=== PATIENT | female | born 1970 | race Caucasian/White ===

== ENCOUNTER 2020-04-19 07:33 | Outpatient (CLI) | payer BC, SELFPAY ==
--- NOTE | ~2020-04-19 | MR_ITS ---
EXAMINATION: MR knee RT wo con DATE: 04/19/2020 08:33 INDICATION: Internal derangement of the right knee TECHNIQUE: Magnetic resonance imaging (MRI) of the right knee was performed without intravenous contr ast. Sequences included coronal PD-weighted FSE, coronal PD-weighted FS FSE, sagittal T2-weighted FS E, sagittal PD-weighted FS FSE and axial PD weighted fat saturated FSE. COMPARISON: None. FINDINGS: Medial compartment: Mild increased intrasubstance signal in the posterior horn of the medial meniscus which does not cont act the articular surface consistent with mucoid degeneration without discrete tear. Partial-thicknes s chondral ulceration without degenerative subchondral changes along the anterior weightbearing media l femoral condyle. Additional cartilage loss with mild subarticular edema along the anteromedial rim of the medial tibial plateau. Lateral compartment: Lateral meniscus is normal. Partial-thickness chondral fissuring at the central to posterior medial a spect of the lateral tibial plateau extending onto the shoulder the intercondylar eminence. Patellofemoral compartment: Partial-thickness cartilage loss along the lateral margin of the lateral trochlea with small region o f full-thickness fissuring with mild underlying cortical irregularity and mild subarticular edema at the cephalad aspect of the lateral trochlea. Additional deep chondral ulceration with mild cortical i rregularity and subarticular edema at the caudal aspect of the trochlear groove and medial trochlea a s well as involving a significant portion of the lateral patellar facet and portions of the apical ri dge. Chondral cartilage thickness is relatively preserved at the medial facet but with shallow fissur ing and chondral surface irregularity. Ligaments and tendons: Anterior and posterior cruciate ligaments are normal. The medial collateral ligament and fibular thine ateral ligament complex are normal. Minimal distal quadriceps tendinopathy with small enthesophytes a t its patellar insertion. There are bands of magic angle artifact extending across portions of the no rmal patellar tendon. The visualized medial and lateral hamstring tendons as well as the iliotibial b and are normal. Fluid: Large right knee joint effusion with mild synovitis along the margins of the suprapatellar pouch. No loose osteochondral bodies identified. Osseous/other: Normal marrow signal. No fracture or abnormal marrow replacing process. IMPRESSION: 1. 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 2. 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 3. Large right knee joint effusion. Reviewed, dictated and finalized at location B. IMPRESSION: 1. Mild medial and patellofemoral compartment predominant tricompartmental oste oarthritis with regions of high-grade chondromalacia in all 3 compartments. 2. 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 3. Large right knee joint effusion.
== END 2020-04-19 07:34 ==
PROVIDERS: PCP Family Medicine
DX: M25.461 Effusion, right knee (principal)
CPT/HCPCS: 73721